=== PATIENT | female | born 1985 ===

== ENCOUNTER → 2018-01-27 14:02 | Outpatient (CLI) | payer OTHER | END | disposition home or self-care (01) | LOC: LAB 14:02 | DX: Z33.1 Pregnant state, incidental (principal) ==

== ENCOUNTER 2020-09-05 08:00 | Outpatient (CLI) | payer OTHER | END 2020-09-05 08:30 | disposition home or self-care (01) | LOC: PPH VACUNA 08:00 | DX: Z23 Encounter for immunization (principal) ==

== ENCOUNTER 2020-10-02 08:00 | Outpatient (CLI) | payer OTHER | END 2020-10-02 08:30 | disposition home or self-care (01) | LOC: PPH VACUNA 08:00 | DX: Z23 Encounter for immunization (principal) ==